=== PATIENT | male | born 1970 | race African-American/Black ===

== ENCOUNTER 2017-04-14 13:03 | Emergency (ER) | payer MEDICAID ==
[~2017-04-14] VITALS: Ht 175.3 cm; Wt 105.0 kg
[2017-04-14] MEDS ORDERED: SODIUM CHLORIDE 0.9% 1,000 ML IV ONE ×2 (14:48→16:30)
[2017-04-14 15:54] LABS: CHLORIDE 99 mEq/L (98-107)
[2017-04-14 15:55] LABS: INR 0.9; PROTHROMBIN TIME 9.9 sec (9.4-11.6)
[2017-04-14 15:58] LABS: BASOPHILS % 0.8 % (0.0-2.0); EOSINOPHILS % 1.6 % (0.0-5.0); HEMATOCRIT. 42.5 % (42.0-52.0); HEMOGLOBIN. 13.4 g/dL (14.0-18.0); LYMPHOCYTES % 24.3 % (20.0-50.0); MEAN CORPUSCULAR HEMOGLOBIN 23.1 pg (28.0-32.0); MEAN CORPUSCULAR VOLUME 73.6 fL (80.0-94.0); MEAN PLATELET VOLUME 11.9 fl (7.4-10.4); MONOCYTES % 7.4 % (2.0-8.0); NEUTROPHILS % 65.9 % (40.0-76.0); PLATELET 123 x1000/uL (130-400); RED BLOOD CELL COUNT 5.77 mill/uL (4.7-6.1); RED CELL DISTRIBUTION WIDTH 14.4 % (11.6-14.6)
[2017-04-14 16:00] LABS: CARBON DIOXIDE 30 mEq/L (21-32)
[2017-04-14 16:03] LABS: BETA HYDROXYBUTYRATE 0.2 mMol/L (0.0-0.3)
[2017-04-14 18:03] VITALS: BP 160/83
== END 2017-04-14 18:14 | disposition home or self-care (01) ==
LOC: ER 13:03
DX: E11.65 Type 2 diabetes mellitus with hyperglycemia (principal); I10 Essential (primary) hypertension
CPT/HCPCS: 36415; 80053; 82010; 82962; 85025; 85610; 96360; 96361; 99285; J7030; Z7610